=== PATIENT | male | born 1930 | race Caucasian/White ===

== ENCOUNTER 2018-11-24 15:32 | Inpatient (IN) | payer MEDICARE, BC ==
[2018-11-24] MEDS ORDERED: NS 0.9% 1000 ML** 1,000 ML IV ONE (15:43)
--- NOTE | 2018-11-24 15:47 | ED ---
GI/ HPI - HPI Summary HPI Summary: An 88 y/o male presents to [facility] with a chief complaint of diarrhea at night every 30 minutes for three days. The patient reports that all he has had is Gatorade and that a cup of tea worsened his diarrhea. He also c/o N/V, abdominal and anus pain (sore). At triage he rated his pain as a 5/10 in severity. He notes that he was at a banquet the day before these symptoms started where he ate chicken at a country club. - History of Current Complaint Chief Complaint: EDNauseaVomitDiarrh Time Seen by Provider: 11/24/18 15:42 Stated Complaint: WEAKNESS PER PT Hx Obtained From: Patient Onset/Duration: Started Days Ago, Still Present Timing: Intermittent, Lasting Minutes - 30 Severity: Moderate Current Severity: Moderate Pain Intensity: 5 - out of 10 Location of Pain: Diffuse, Anal Pain Characteristics: Other: - sore Associated Signs and Symptoms: Positive: Nausea, Vomiting, Abdominal Pain Aggravating Factor(s): Liquids Alleviating Factor(s): Nothing - Additional Pertinent History Primary Care Physician: [id number] - Allergy/Home Medications Allergies/Adverse Reactions: Allergies Allergy/AdvReac Type Severity Reaction Status Date / Time hexachlorophene Allergy Rash Verified 11/24/18 15:39 latex Allergy Rash And Verified 11/24/18 15:39 Itching pregabalin Allergy Insomnia Verified 11/24/18 15:39 Sulfa (Sulfonamide Allergy Rash And Verified 11/24/18 15:39 Antibiotics) Itching HAYFEVER Allergy SNEEZING, Uncoded 09/14/15 06:59 ITCHING Home Medications: Home Medications Aspirin EC TAB* [Ecotrin EC Low Dose 81 MG*] 81 mg PO DAILY 11/24/18 [History Confirmed 11/24/18] Cholecalciferol TAB* [Vitamin D TAB*] 400 unit PO DAILY 11/24/18 [History Confirmed 11/24/18] Famotidine TAB* [Pepcid 20 MG TAB*] 20 mg PO BEDTIME 11/24/18 [History Confirmed 11/24/18] Omeprazole 20 mg PO DAILY 11/24/18 [History Confirmed 11/24/18] PMH/Surg Hx/FS Hx/Imm Hx Endocrine/Hematology History: Reports: Hx Anemia Denies: Hx Diabetes, Hx Thyroid Disease Cardiovascular History: Denies: Hx Cardiac Arrest, Hx Congestive Heart Failure, Hx Coronary Artery Disease, Hx Deep Vein Thrombosis, Hx Hypertension, Hx Pacemaker/ICD, Hx Syncope Respiratory History: Denies: Hx Asthma, Hx Chronic Obstructive Pulmonary Disease (COPD) GI History: Reports: Hx Diverticulosis, Hx Gastroesophageal Reflux Disease, Other GI Disorders - diverticulitis Denies: Hx Ulcer History: Reports: Other Problems/Disorders - h/o prostatitis Denies: Hx Dialysis Musculoskeletal History: Reports: Hx Arthritis, Hx Back Problems, Hx Bursitis, Hx Osteoporosis, Hx Tendonitis, Other Musculoskeletal History - R 1st MP joint surgery x2, R grat toe prosthesis, L palmar fascietomy Comment Only: Hx Rheumatoid Arthritis - ARTHRITIS LOW SPINE SURGERY Sensory History: Reports: Hx Cataracts, Hx Contacts or Glasses, Hx Eye Injury - lephoritis to right eye, Hx Vision Problem - blurry, tearing to l eye, Hx Deafness - hearing aides, Hx Hearing Aid, Hx Hearing Problem Opthamlomology History: Reports: Hx Cataracts, Hx Contacts or Glasses, Hx Eye Injury - lephoritis to right eye, Hx Vision Problem - blurry, tearing to l eye Neurological History: Reports: Hx Spinal Cord Injury - L5-S1 laminectomy in 2002 , Other Neuro Impairments/Disorders - polymyaliga rheumatica Denies: Hx Dementia, Hx Seizures Psychiatric History: Denies: Hx Panic Disorder, Other Psychiatric Issues/Disorders - Surgical History Surgery Procedure, Year, and Place: 2003 [facility] RT FOOT SURGERY X2 OZ. & [id number] CATARACTS [place]. LEFT HAND 06/2014 Hx Anesthesia Reactions: No Infectious Disease History: No Infectious Disease History: Denies: Hx Clostridium Difficile, Hx Hepatitis, Hx Human Immunodeficiency Virus (HIV), Hx of Known/Suspected MRSA, Hx Shingles, Hx Tuberculosis, Hx Known/ Suspected VRE, Hx Known/Suspected VRSA, History Other Infectious Disease, Traveled Outside the [place] in Last 30 Days - Family History Known Family History: Positive: Other - cancer - Social History Alcohol Use: Rare Alcohol Amount: glass of wine with dinner Substance Use Type: Reports: None Smoking Status (MU): Never Smoked Tobacco Have You Smoked in the Last Year: No Review of Systems Positive: Fatigue. Negative: Fever Positive: Abdominal Pain, Vomiting, Diarrhea, Nausea All Other Systems Reviewed And Are Negative: Yes Physical Exam - Summary Physical Exam Summary: VITAL SIGNS: Reviewed. GENERAL: Patient is a well-developed and nourished MALE who is lying comfortable in the stretcher. Patient is not in any acute respiratory distress. HEAD AND FACE: No signs of trauma. No ecchymosis, hematomas or skull depressions. No sinus tenderness. EYES: PERRLA, EOMI x 2, No injected conjunctiva, no nystagmus. EARS: Hearing grossly intact. Ear canals and tympanic membranes are within normal limits. MOUTH: Dry oral mucosa. NECK: Supple, trachea is midline, no adenopathy, no JVD, no carotid bruit, no c- spine tenderness, neck with full ROM. CHEST: Symmetric, no tenderness at palpation LUNGS: Clear to auscultation bilaterally. No wheezing or crackles. CVS: Regular rate and rhythm, S1 and S2 present, no murmurs or gallops appreciated. ABDOMEN: Soft, non-tender. No signs of distention. No rebound no guarding, and no masses palpated. Increased bowel sounds. EXTREMITIES: FROM in all major joints, no edema, no cyanosis or clubbing. NEURO: Alert and oriented x 3. No acute neurological deficits. Speech is normal and follows commands. SKIN: Dry and warm. increased bowel sounds Triage Information Reviewed: Yes Vital Signs On Initial Exam: Initial Vitals Temp Pulse Resp BP Pulse Ox 98.8 F 88 18 129/69 96 11/24/18 15:33 11/24/18 15:33 11/24/18 15:33 11/24/18 15:33 11/24/18 15:33 Vital Signs Reviewed: Yes Diagnostics - Vital Signs Vital Signs Temp Pulse Resp BP Pulse Ox 11/24/18 15:33 98.8 F 88 18 129/69 96 - Laboratory Result Diagrams: 11/24/18 16:44 11/24/18 16:44 Lab Statement: Any lab studies that have been ordered have been reviewed, and results considered in the medical decision making process. - Radiology CXR Radiology Interpretation Completed By: Radiologist Summary of Radiographic Findings: Stigmata of obstructive lung disease. No acute pulmonary or cardiac process evident. ED physician has reviewed this imaging report. abdomen x-ray Radiology Interpretation Completed By: Radiologist Summary of Radiographic Findings: Consider colitis/gastroenteritis. ED physician has reviewed this imaging report. GIGU Course/Dx - Course Assessment/Plan: An 88 y/o male presents to [facility] with a chief complaint of diarrhea at night every 30 minutes for three days. The patient reports that all he has had is Gatorade and that a cup of tea worsened his diarrhea. He also c/o N/V, abdominal and anus pain (sore). At triage he rated his pain as a 5/10 in severity. He notes that he was at a banquet the day before these symptoms started where he ate chicken at a country club. In the ER course the patient was placed in a environmental monitoring technician, IV access was obtained and we started IV fluids. Test results shows on cc of 2.9, hemoglobin 10.6, hematocrit 32, platelets of 66. Sodium level is 1:30, carbon dioxide is 18, BUN is 35, creatinine is 1.26, glucose is 120, AST and AST is 65 and 76, CRP is 115, and lipase is less than 10. In the ED course the patient was given IV fluids. However the patient seems to be dehydrated, some renal insufficiency, the CRP is elevated. He hasnt been able to give a sample yet however I discussed the case with and Dr. Bailey from the hospitalist services who accepted the patient for admission. The patient is hemodynamically stable alert and oriented 3. - Diagnoses Provider Diagnoses: Nausea vomiting and diarrhea, Dehydration, Renal insufficiency - Physician Notifications Discussed Care Of Patient With: Iris Bailey Time Discussed With Above Provider: 18:16 Instructed by Provider To: Admit As Inpatient Discharge - Sign-Out/Discharge Documenting (check all that apply): Patient Departure - admit Patient Received Moderate/Deep Sedation with Procedure: No - Discharge Plan Condition: Fair Disposition: ADMITTED TO [facility] - Billing Disposition and Condition Condition: FAIR Disposition: Admitted to [facility] - Attestation Statements Document Initiated by Scribe: Yes Documenting Scribe: Prabhjot Taylor Provider For Whom Bertin is Documenting (Include Credential): Sang Girard MD Scribe Attestation: Prabhjot Schuler, scribed for Sang Girard MD on 11/25/18 at 0812. Scribe Documentation Reviewed: Yes Provider Attestation: The documentation as recorded by the Prabhjot marmolejo accurately reflects the service I personally performed and the decisions made by , Sagn Girard MD Status of Scribe Document: Viewed
[2018-11-24 17:08] LABS: ABS Lymphocytes 0.3 10^3/ul (1.0-4.8); ABS Monocytes 0.2 10^3/ul (0-0.8); ABS Neutrophils 2.4 10^3/ul (1.5-7.7); Hematocrit 32 % (42-52); Hemoglobin 10.6 g/dL (14.0-18.0); Lymphocyte % 9.1 %; Mean Corpuscular HGB Conc 34 g/dL (31-36); Mean Corpuscular Hemoglobin 34 pg (27-31); Mean Corpuscular Volume 101 fL (80-94); Nucleated Red Blood Cells % 0.1; Platelet Count 66 10^3/uL (150-450); Red Blood Count 3.13 10^6 /uL (4.18-5.48); Red Cell Distribution Width 19 % (10.5-15); White Blood Count 2.9 10^3/uL (3.5-10.8)
[2018-11-24 17:15] LABS: ALT 76 U/L (7-52); AST 65 U/L (13-39); Albumin 4.5 g/dL (3.2-5.2); Albumin/Globulin Ratio 1.8 (1-3); Alkaline Phosphatase 53 U/L (34-104); Anion Gap 9 mmol/L (2-11); BUN/Creatinine Ratio 27.8 (8-20); Blood Urea Nitrogen 35 mg/dL (6-24); C Reactive Protein 115.43 mg/L (<8.01); CO2 Carbon Dioxide 18 mmol/L (22-32); Calcium 9.4 mg/dL (8.6-10.3); Chloride 103 mmol/L (101-111); Creatine Kinase 108 U/L (10-223); EGFR African American 65.2 (>60); EGFR Non-African American 53.9 (>60); Globulin 2.5 g/dL (2-4); Glucose 120 mg/dL (70-100); Potassium 3.5 mmol/L (3.5-5.0); Sodium 130 mmol/L (135-145)
[2018-11-24] MEDS ORDERED: Acetaminophen TAB* 325 MG PO PRN (20:02)
[2018-11-24] MEDS ORDERED: Ondansetron INJ* 2 MG/ML VIAL IV PRN (20:02)
[2018-11-24] MEDS ORDERED: NS 0.9% 1000 ML** 1,000 ML IV SCH (20:15)
[2018-11-24] MEDS: metroNIDAZOLE IV 500 MG/100ML* 500 MG/100 ML BAG IVPB SCH (20:37)
[2018-11-24] MEDS ORDERED: Ciprofloxacin 400MG IVPREMIX(* 400 MG/200 ML BAG IVPB SCH (21:00)
--- NOTE | 2018-11-24 21:16 | HP ---
HISTORY AND PHYSICAL: DATE OF ADMISSION: 11/24/18 CHIEF COMPLAINT: Diarrhea, abdominal pain, nausea, vomiting. HISTORY OF PRESENT ILLNESS: 88-year-old male with history of hypertension, hyperlipidemia, myelodysplastic syndrome, here for further evaluation of diarrhea, nausea, and abdominal pain. The patient reports that he was in his usual state of health and went to a luncheon at the [employer] on . The patient went for an echocardiogram to evaluate his shortness of breath that has been more pronounced on Sunday and through all this, felt good. Had some calamari and red sauce for dinner on Sunday. On Sunday evening/night, the patient started developing explosive diarrhea and has been having a bowel movements every 30 minutes. Reports that there was no foul smell and the diarrhea was extremely watery. The patient called his primary care's office yesterday and she recommended waiting for another 24 hours and then going to the ER if no improvement. Currently it has been more than 48 hours of symptoms. The patient also complaining of lower abdominal discomfort that is not relieved by bowel movement. Also complaining of anal pain that is sore from having diarrhea 30 times a day. In addition, the patient also had projectile vomiting on Sunday, and has been having ongoing nausea and vomiting. The patient follows with Dr. Brewster as an outpatient and gets biweekly/weekly Aranesp shots for his MDS. The patient takes medication for high blood pressure otherwise has been fairly healthy and independent for his age. The patient lives alone and prior to this was in good health performing all his activities. PAST MEDICAL HISTORY: 1. Myelodysplastic syndrome. 2. Arthritis. 3. History of hyperlipidemia. 4. Acid reflux. 5. Hypertension for which he takes losartan at home. MEDICATION LIST: 1. Aspirin 81 mg p.o. daily. 2. Aranesp infusions. 3. Vitamin D 400 mg p.o. daily. 4. Famotidine 20 mg every day. 5. Omeprazole 20 mg daily. We will reconfirm with the patient that if he still takes his PPIs as the patient did not mention them during the interview but has found in his med list. 6. Losartan 25 mg p.o. b.i.d. SOCIAL HISTORY: The patient drinks wine socially and with meals. Denies history of smoking. No recreational drugs. 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 REVIEW OF SYSTEMS: As mentioned in the HPI. Other 14-point review of systems is noted to be negative. PHYSICAL EXAMINATION VITALS: Temperature 98.8, pulse 88, respiratory rate 18, oxygen saturation 96% , blood pressure 129/69. HEENT: NCAT. LUNGS: Clear to auscultation bilaterally. No wheezes, no rhonchi. HEART: S1, S2 present. Tachycardiac at the time of exam. ABDOMEN: Soft, minimal tenderness on palpation of the lower abdomen. Hyperactive bowel sounds. No rebound. No guarding. EXTREMITIES: Noted to have no edema. NEURO: Alert, oriented x3. DIAGNOSTIC STUDIES/LAB DATA: WBC 2.9, hemoglobin 10.6, hematocrit 32, platelets noted to be 66. Sodium 130, potassium 3.5, chloride 103, CO2 18, BUN 35, creatinine 1.26. Glucose noted to be 120. AST 65, ALT 76. CRP noted to be 115.43. Imaging: Chest x-ray: Stigmata of obstructive lung disease. No acute pulmonary or cardiac process. Abdominal x-ray: Consider colitis/gastroenteritis. ASSESSMENT AND PLAN: An 88-year-old male with a history of myelodysplastic syndrome here with symptoms of gastroenteritis/colitis. 1. Gastroenteritis/colitis. The patient has had symptoms for over 48 hours with no improvement. The patient has stayed hydrated with oral hydration through this. Viral and toxin mediated diarrhea is possible and considered. However, the patient has not improved in over 48 hours and bacterial infection would need to be considered as well. We will get stool studies on the patient including Clostridium difficile, even though the patient denies any recent antibiotic use, ova and parasites, stool culture, rota virus, vibrio ,stool wbc ,campylovbacter and check for other infectious pathology as ordered. We will hydrate the patient with normal saline. We will empirically place the patient on ciprofloxacin and Flagyl intravenously till stool studies are available and as the patient did not improve in 48 hours of conservative management, we will tailor further therapy based on stool study results. 2. Minimal elevation in creatinine secondary to dehydration. The patient's baseline appears to be 1 to 1.14. We will hydrate the patient with normal saline and we will also hold his losartan in the setting of dehydration to avoid development of acute kidney injury. 3. Hyponatremia secondary to dehydration and volume depletion. We will hydrate the patient. 4. Myelodysplastic syndrome. The patient gets weekly/biweekly Aranesp with Heme/Onc and follows with Dr. Brewster. Will need to keep Dr. Brewster updated on clinical progress. [id number]/[facility] #: [id number] MTDD
[2018-11-25] MEDS: metroNIDAZOLE IV 500 MG/100ML* 500 MG/100 ML BAG IVPB SCH (05:07)
--- NOTE | 2018-11-25 08:19 | PN ---
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 No nausea,no appetite, otherwise pleasant and well. Discussed + C Diff and rotavirus, no recent abx or sick contacts Objective Active Medications: Acetaminophen (Tylenol Tab*) 650 mg PO Q4H PRN PRN Reason: FEVER/PAIN Last Admin: 11/24/18 22:55 Dose: 650 mg Ciprofloxacin/Dextrose (Cipro 400 Mg Ivpremix(*)) 400 mg in 200 mls @ 200 mls/ hr IVPB Q12H KENDALL; Protocol Last Admin: 11/24/18 20:37 Dose: 200 mls/hr Metronidazole/Sodium Chloride (Flagyl 500 Mg Ivpb*) 500 mg in 100 mls @ 100 mls /hr IVPB Q8H KENDALL Last Admin: 11/25/18 05:07 Dose: 100 mls/hr Sodium Chloride (Ns 0.9% 1000 Ml) 1,000 mls @ 75 mls/hr IV PER RATE KENDALL Stop: 11/25/18 09:34 Last Admin: 11/24/18 22:36 Dose: 75 mls/hr Ondansetron HCl (Zofran Inj*) 4 mg IV Q4H PRN PRN Reason: NAUSEA/VOMITING Vital Signs - 8 hr 11/25/18 11/25/18 03:40 07:41 Temperature 97.5 F 98.1 F Pulse Rate 69 72 Respiratory 18 14 Rate Blood Pressure 128/53 123/57 (mmHg) O2 Sat by Pulse 96 98 Oximetry Oxygen Devices in Use Now: Nasal Cannula Appearance: Pleasant man in NAD Eyes: No Scleral Icterus, PERRLA Ears/Nose/Mouth/Throat: NL Teeth, Lips, Gums, Clear Oropharnyx Neck: NL Appearance and Movements; NL JVP Respiratory: Symmetrical Chest Expansion and Respiratory Effort, Clear to Auscultation, - - Mild atelectasisi L lung base Cardiovascular: NL Sounds; No Murmurs; No JVD, RRR Abdominal: No Hepatosplenomegaly, - - Not distended, soft, TTP in RL and LL quadrant Lymphatic: No Cervical Adenopathy Extremities: No Edema Skin: No Rash or Ulcers Neurological: Alert and Oriented x 3 Result Diagrams: 11/25/18 08:12 11/25/18 08:12 Microbiology and Other Data: Microbiology 11/24/18 21:19 Stool Gross Appearance - Final Stool C. difficile DNA Amplification - Final 027 Presumptive NEGATIVE Toxigenic C.diff POSITIVE Stool Lactoferrin - Final Stool Occult Blood (MIKE) - Final Rotavirus Antigen - Final Positive Rotavirus Assess/Plan/Problems-Billing Assessment: 88M PMH MDS following with onc, HLD, HTN, GERD who presented with acute diarrheal illness, hyponatremia and ZEKE found ot be Roatvirus and C Diff + - Patient Problems (1) Infectious diarrheal disease Current Visit: Yes Status: Acute Code(s): A09 - INFECTIOUS GASTROENTERITIS AND COLITIS, UNSPECIFIED SNOMED Code(s): 51721081 Comment: - Rotavirus and C Diff Positive - Supportive care for rotavirus, IVF hydration x 2 additional L starting 11/25 - Advance diet as tolerated (2) Clostridium difficile diarrhea Current Visit: Yes Status: Acute Code(s): A04.72 - ENTEROCOLITIS D/T CLOSTRIDIUM DIFFICILE, NOT SPCF RECUR SNOMED Code(s): 2845773465788 Comment: - D/C Cipro/Flagyl, start Oral Vancomycin 11/25 250 QID for first occurence day 07/11 on 11/25 - Morphine for pain, discussed with patient to let us know if pain worsens, r/o megacolon if so (3) ZEKE (acute kidney injury) Current Visit: Yes Status: Acute Code(s): N17.9 - ACUTE KIDNEY FAILURE, UNSPECIFIED SNOMED Code(s): 04354353 Comment: - Prerenal, recheck 11/26 - Continue IVF for now with stop amt 2 additional L (4) Hyponatremia Current Visit: Yes Status: Acute Code(s): E87.1 - HYPO-OSMOLALITY AND HYPONATREMIA SNOMED Code(s): 35745071 Comment: - C/w hypovolemia on admission (5) MDS (myelodysplastic syndrome) Current Visit: Yes Status: Acute Code(s): D46.9 - MYELODYSPLASTIC SYNDROME, UNSPECIFIED SNOMED Code(s): 769709433 Comment: - Appears at baseline pancytopenia, follows with Dr. Brewster (6) Hypertension Current Visit: Yes Status: Acute Code(s): I10 - ESSENTIAL (PRIMARY) HYPERTENSION SNOMED Code(s): 69579416 Comment: - Holding Losartan for now (7) GERD (gastroesophageal reflux disease) Current Visit: Yes Status: Acute Code(s): K21.9 - GASTRO-ESOPHAGEAL REFLUX DISEASE WITHOUT ESOPHAGITIS SNOMED Code(s): 616548222 Comment: - On famotidine, holding PPI (8) S/P knee replacement Current Visit: No Status: Acute Priority: High Onset Date: 09/16/15 Code (s): Z96.659 - PRESENCE OF UNSPECIFIED ARTIFICIAL KNEE JOINT SNOMED Code(s): 696966363 Comment: - On Remington, Tylenol, holding ibuprofen in setting of ZEKE (9) DVT prophylaxis Current Visit: Yes Status: Acute Code(s): Z29.9 - ENCOUNTER FOR PROPHYLACTIC MEASURES, UNSPECIFIED SNOMED Code(s): 834310103 Comment: - Plt 66, continue to monitor, SCD/ambuate for now (10) Full code status Current Visit: Yes Status: Acute Code(s): Z78.9 - OTHER SPECIFIED HEALTH STATUS SNOMED Code(s): 106490848 Status and Disposition: Inpatient
[2018-11-25] MEDS ORDERED: NS 0.9% 1000 ML** 2,000 ML IV ONE (08:21)
[2018-11-25 08:36] LABS: ABS Lymphocytes 0.4 10^3/ul (1.0-4.8); ABS Monocytes 0.3 10^3/ul (0-0.8); ABS Neutrophils 1.5 10^3/ul (1.5-7.7); Eosinophil % 0.1 %; Hematocrit 28 % (42-52); Hemoglobin 9.8 g/dL (14.0-18.0); Lymphocyte % 17.4 %; Mean Corpuscular HGB Conc 35 g/dL (31-36); Mean Corpuscular Hemoglobin 35 pg (27-31); Mean Corpuscular Volume 100 fL (80-94); Mean Platelet Volume 8.8 fL (7.4-10.4); Nucleated Red Blood Cells % 0.1; Platelet Count 56 10^3/uL (150-450); Red Blood Count 2.83 10^6 /uL (4.18-5.48); Red Cell Distribution Width 19 % (10.5-15); White Blood Count 2.2 10^3/uL (3.5-10.8)
[2018-11-25 08:45] LABS: Albumin 3.6 g/dL (3.2-5.2); Albumin/Globulin Ratio 1.6 (1-3); BUN/Creatinine Ratio 28.4 (8-20); Calcium 8.3 mg/dL (8.6-10.3); EGFR African American 90.3 (>60); EGFR Non-African American 74.6 (>60); Globulin 2.2 g/dL (2-4); Potassium 3.4 mmol/L (3.5-5.0); Total Bilirubin 0.4 mg/dL (0.2-1.0); Total Protein 5.8 g/dL (6.4-8.9)
[2018-11-25] MEDS: Cholecalciferol TAB* 400 UNIT PO SCH (08:58)
[2018-11-25] MEDS: Vancomycin CAP* 250 MG CAP PO SCH ×4 (08:58→20:26)
[2018-11-25] MEDS: Morphine INJ* 2 MG/ML 1 ML SYRINGE (TWO MG - NEW SYRINGE VERSION) IV PRN ×2 (13:30→20:26)
[2018-11-25] MEDS ORDERED: Calcium Carbonate CHEW TAB* 500 MG (TUMS) PO PRN (19:58)
[2018-11-25] MEDS: Gabapentin CAP(*) 300 MG PO SCH (20:25)
[2018-11-25] MEDS: Famotidine TAB* 20 MG PO SCH (20:26)
[2018-11-26 06:43] LABS: ABS Lymphocytes 0.8 10^3/ul (1.0-4.8); ABS Monocytes 0.3 10^3/ul (0-0.8); ABS Neutrophils 1.7 10^3/ul (1.5-7.7); Eosinophil % 0.2 %; Hematocrit 29 % (42-52); Hemoglobin 10.4 g/dL (14.0-18.0); Lymphocyte % 28.5 %; Mean Corpuscular HGB Conc 35 g/dL (31-36); Mean Corpuscular Hemoglobin 35 pg (27-31); Mean Corpuscular Volume 99 fL (80-94); Mean Platelet Volume 9.1 fL (7.4-10.4); Platelet Count 52 10^3/uL (150-450); Red Blood Count 2.98 10^6 /uL (4.18-5.48); Red Cell Distribution Width 19 % (10.5-15); White Blood Count 2.8 10^3/uL (3.5-10.8)
[2018-11-26 06:48] LABS: BUN/Creatinine Ratio 23.1 (8-20); Calcium 8.5 mg/dL (8.6-10.3); EGFR African American 94.9 (>60); EGFR Non-African American 78.4 (>60); Potassium 3.5 mmol/L (3.5-5.0)
--- NOTE | 2018-11-26 07:27 | PN ---
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 Vásquez [place], tolerating full liquid diet, reticent to d/c today wants to see how advancing diet goes. Objective Active Medications: Acetaminophen (Tylenol Tab*) 650 mg PO Q4H PRN PRN Reason: FEVER/PAIN Last Admin: 11/24/18 22:55 Dose: 650 mg Calcium Carbonate (Tums*) 500 mg PO Q4H PRN PRN Reason: Dyspepsia/Indigestion Last Admin: 11/25/18 20:25 Dose: 500 mg Cholecalciferol (Vitamin D Tab*) 400 unit PO DAILY [facility] Last Admin: 11/25/18 08:58 Dose: 400 unit Famotidine (Pepcid Tab*) 20 mg PO BEDTIME [facility] Last Admin: 11/25/18 20:26 Dose: 20 mg Gabapentin (Neurontin Cap(*)) 300 mg PO BEDTIME [facility] Last Admin: 11/25/18 20:25 Dose: 300 mg Morphine Sulfate (Morphine Inj (Syringe))*) 2 mg IV Q4H PRN PRN Reason: PAIN - MILD Last Admin: 11/25/18 20:26 Dose: 2 mg Ondansetron HCl (Zofran Inj*) 4 mg IV Q4H PRN PRN Reason: NAUSEA/VOMITING Last Admin: 11/25/18 09:09 Dose: 4 mg Vancomycin HCl (Vancomycin Cap*) 250 mg PO QID [facility] Stop: 12/05/18 08:59 Last Admin: 11/25/18 20:26 Dose: 250 mg Vital Signs - 8 hr 11/25/18 11/26/18 23:48 03:32 Temperature 98.2 F 98.2 F Pulse Rate 69 59 Respiratory 16 Rate Blood Pressure 120/51 (mmHg) O2 Sat by Pulse 97 97 Oximetry Oxygen Devices in Use Now: Nasal Cannula Appearance: Pleasant man in NAD Eyes: No Scleral Icterus, PERRLA Ears/Nose/Mouth/Throat: NL Teeth, Lips, Gums, Clear Oropharnyx Neck: NL Appearance and Movements; NL JVP, No Thyroid Enlargement, Masses Respiratory: Symmetrical Chest Expansion and Respiratory Effort, Clear to Auscultation Cardiovascular: NL Sounds; No Murmurs; No JVD, RRR Abdominal: NL Sounds; No Tenderness; No Distention, No Hepatosplenomegaly Lymphatic: No Cervical Adenopathy Extremities: No Edema Skin: No Rash or Ulcers Neurological: Alert and Oriented x 3 Result Diagrams: 11/26/18 06:01 11/26/18 06:01 Microbiology and Other Data: Microbiology 11/24/18 21:19 Stool Gross Appearance - Final Stool C. difficile DNA Amplification - Final 027 Presumptive NEGATIVE Toxigenic C.diff POSITIVE Stool Lactoferrin - Final Stool Occult Blood (MIKE) - Final Rotavirus Antigen - Final Positive Rotavirus Assess/Plan/Problems-Billing Assessment: 88M PMH MDS following with onc, HLD, HTN, GERD who presented with acute diarrheal illness, hyponatremia and ZEKE found ot be Roatvirus and C Diff + - Patient Problems (1) Infectious diarrheal disease Current Visit: Yes Status: Acute Code(s): A09 - INFECTIOUS GASTROENTERITIS AND COLITIS, UNSPECIFIED SNOMED Code(s): 06974049 Comment: - Rotavirus and C Diff Positive - Supportive care for rotavirus, IVF hydration d/c this AM will continue to monitor - Advance diet as tolerated (2) Clostridium difficile diarrhea Current Visit: Yes Status: Acute Code(s): A04.72 - ENTEROCOLITIS D/T CLOSTRIDIUM DIFFICILE, NOT SPCF RECUR SNOMED Code(s): 6147830752201 Comment: - D/C Cipro/Flagyl, start Oral Vancomycin 11/25 250 QID for first occurence day 07/11 on 11/25 - Morphine for pain, discussed with patient to let us know if pain worsens, r/o megacolon if so (3) ZEKE (acute kidney injury) Current Visit: Yes Status: Acute Code(s): N17.9 - ACUTE KIDNEY FAILURE, UNSPECIFIED SNOMED Code(s): 85249414 Comment: - Prerenal, improved - Continue IVF for now with stop amt 2 additional L (4) Hyponatremia Current Visit: Yes Status: Acute Code(s): E87.1 - HYPO-OSMOLALITY AND HYPONATREMIA SNOMED Code(s): 38108982 Comment: - C/w hypovolemia on admission-resolved (5) MDS (myelodysplastic syndrome) Current Visit: Yes Status: Acute Code(s): D46.9 - MYELODYSPLASTIC SYNDROME, UNSPECIFIED SNOMED Code(s): 196013155 Comment: - Appears at baseline pancytopenia, follows with Dr. Brewster (6) Hypertension Current Visit: Yes Status: Acute Code(s): I10 - ESSENTIAL (PRIMARY) HYPERTENSION SNOMED Code(s): 06991853 Comment: - Holding Losartan for now (7) GERD (gastroesophageal reflux disease) Current Visit: Yes Status: Acute Code(s): K21.9 - GASTRO-ESOPHAGEAL REFLUX DISEASE WITHOUT ESOPHAGITIS SNOMED Code(s): 413912839 Comment: - On famotidine, holding PPI (8) S/P knee replacement Current Visit: No Status: Acute Priority: High Onset Date: 09/16/15 Code (s): Z96.659 - PRESENCE OF UNSPECIFIED ARTIFICIAL KNEE JOINT SNOMED Code(s): 760366851 Comment: - On Remington, Tylenol, holding ibuprofen in setting of ZEKE (9) DVT prophylaxis Current Visit: Yes Status: Acute Code(s): Z29.9 - ENCOUNTER FOR PROPHYLACTIC MEASURES, UNSPECIFIED SNOMED Code(s): 009542577 Comment: - Plt 66, continue to monitor, SCD/ambuate for now (10) Full code status Current Visit: Yes Status: Acute Code(s): Z78.9 - OTHER SPECIFIED HEALTH STATUS SNOMED Code(s): 279868395 Status and Disposition: Inpatient
[2018-11-26] MEDS: Vancomycin CAP* 250 MG CAP PO SCH ×4 (08:18→20:56)
[2018-11-26] MEDS: Cholecalciferol TAB* 400 UNIT PO SCH (08:18)
--- NOTE | 2018-11-26 11:20 | PN ---
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 Admitted 2 days ago with severe diarrhea, found to have C.Diff and Rotavirus. Feels like he is making slow improvement. No complaints to this brief writer. Concerned about getting his injection. Medications: Acetaminophen (Tylenol Tab*) 650 mg PO Q4H PRN PRN Reason: FEVER/PAIN Last Admin: 11/24/18 22:55 Dose: 650 mg Calcium Carbonate (Tums*) 500 mg PO Q4H PRN PRN Reason: Dyspepsia/Indigestion Last Admin: 11/25/18 20:25 Dose: 500 mg Cholecalciferol (Vitamin D Tab*) 400 unit PO DAILY [facility] Last Admin: 11/26/18 08:18 Dose: 400 unit Famotidine (Pepcid Tab*) 20 mg PO BEDTIME [facility] Last Admin: 11/25/18 20:26 Dose: 20 mg Gabapentin (Neurontin Cap(*)) 300 mg PO BEDTIME [facility] Last Admin: 11/25/18 20:25 Dose: 300 mg Morphine Sulfate (Morphine Inj (Syringe))*) 2 mg IV Q4H PRN PRN Reason: PAIN - MILD Last Admin: 11/25/18 20:26 Dose: 2 mg Ondansetron HCl (Zofran Inj*) 4 mg IV Q4H PRN PRN Reason: NAUSEA/VOMITING Last Admin: 11/25/18 09:09 Dose: 4 mg Vancomycin HCl (Vancomycin Cap*) 250 mg PO QID [facility] Stop: 12/05/18 08:59 Last Admin: 11/26/18 08:18 Dose: 250 mg Objective: [] Vital Signs Temp Pulse Resp BP Pulse Ox 97.3 F 70 20 130/58 95 11/26/18 08:04 11/26/18 08:04 11/26/18 08:38 11/26/18 08:04 11/26/18 08:04 A&Ox3, EOMI, neuro grossly non-focal No acute distress Resp. even and non-labored without audible wheeze or rhonchi No palor noted Laboratory Results - last 24 hr 11/26/18 11/26/18 06:01 06:01 WBC 2.8 L RBC 2.98 L Hgb 10.4 L Hct 29 L MCV 99 H MCH 35 H MCHC 35 RDW 19 H Plt Count 52 L MPV 9.1 Neut % (Auto) 60.2 Lymph % (Auto) 28.5 Mclean % (Auto) 9.9 Eos % (Auto) 0.2 Baso % (Auto) 1.2 Absolute Neuts (auto) 1.7 Absolute Lymphs (auto) 0.8 L Absolute Monos (auto) 0.3 Absolute Eos (auto) 0.0 Absolute Basos (auto) 0.0 Absolute Nucleated RBC 0.0 Nucleated RBC % 0.0 Sodium 136 Potassium 3.5 Chloride 110 Carbon Dioxide 19 L Anion Gap 7 BUN 21 Creatinine 0.91 Est GFR ( Amer) 94.9 Est GFR (Non-Af Amer) 78.4 BUN/Creatinine Ratio 23.1 H Glucose 95 Calcium 8.5 L Assessment/Plan: []88 yo male with MDS admitted with c.diff and rotavirus, slowly improving. He has been on darbapoetin 500 mcg f4yudhe since September with stable hmg therefore with acute illness will hold injection until discharged. I have requested he call our office once he is discharged to reschedule. Further medical management per the hospitalist. EPI Brewster as scheduled 12/12
[2018-11-26] MEDS: Morphine INJ* 2 MG/ML 1 ML SYRINGE (TWO MG - NEW SYRINGE VERSION) IV PRN (20:55)
[2018-11-26] MEDS: Famotidine TAB* 20 MG PO SCH (20:57)
[2018-11-26] MEDS: Gabapentin CAP(*) 300 MG PO SCH (20:57)
[2018-11-27 07:02] LABS: BUN/Creatinine Ratio 17.5 (8-20); Calcium 8.3 mg/dL (8.6-10.3); EGFR African American 110.1 (>60); Potassium 3.1 mmol/L (3.5-5.0)
[2018-11-27 07:05] LABS: ABS Monocytes 0.2 10^3/ul (0-0.8); ABS Neutrophils 1.1 10^3/ul (1.5-7.7); Eosinophil % 0.4 %; Hematocrit 28 % (42-52); Hemoglobin 9.7 g/dL (14.0-18.0); Lymphocyte % 40.9 %; Mean Corpuscular HGB Conc 35 g/dL (31-36); Mean Corpuscular Hemoglobin 34 pg (27-31); Mean Corpuscular Volume 98 fL (80-94); Mean Platelet Volume 9.3 fL (7.4-10.4); Platelet Count 42 10^3/uL (150-450); Red Blood Count 2.84 10^6 /uL (4.18-5.48); Red Cell Distribution Width 19 % (10.5-15); White Blood Count 2.4 10^3/uL (3.5-10.8)
--- NOTE | 2018-11-27 07:07 | PN ---
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 No further pain, still diarrhea on BMs but somewhat normalizing, 3 total BM yesterday Objective Active Medications: Acetaminophen (Tylenol Tab*) 650 mg PO Q4H PRN PRN Reason: FEVER/PAIN Last Admin: 11/24/18 22:55 Dose: 650 mg Calcium Carbonate (Tums*) 500 mg PO Q4H PRN PRN Reason: Dyspepsia/Indigestion Last Admin: 11/25/18 20:25 Dose: 500 mg Cholecalciferol (Vitamin D Tab*) 400 unit PO DAILY [facility] Last Admin: 11/26/18 08:18 Dose: 400 unit Famotidine (Pepcid Tab*) 20 mg PO BEDTIME [facility] Last Admin: 11/26/18 20:57 Dose: 20 mg Gabapentin (Neurontin Cap(*)) 300 mg PO BEDTIME [facility] Last Admin: 11/26/18 20:57 Dose: 300 mg Morphine Sulfate (Morphine Inj (Syringe))*) 2 mg IV Q4H PRN PRN Reason: PAIN - MILD Last Admin: 11/26/18 20:55 Dose: 2 mg Ondansetron HCl (Zofran Inj*) 4 mg IV Q4H PRN PRN Reason: NAUSEA/VOMITING Last Admin: 11/25/18 09:09 Dose: 4 mg Potassium Chloride (Klor Con Er Tab*) 20 meq PO BID [facility] Stop: 11/28/18 09:01 Vancomycin HCl (Vancomycin Cap*) 250 mg PO QID [facility] Stop: 12/05/18 08:59 Last Admin: 11/26/18 20:56 Dose: 250 mg Vital Signs - 8 hr 11/27/18 03:11 Temperature 97.5 F Pulse Rate 63 Respiratory 16 Rate Blood Pressure 124/53 (mmHg) O2 Sat by Pulse 97 Oximetry Oxygen Devices in Use Now: None Appearance: NAD man sitting up reading book Eyes: No Scleral Icterus, PERRLA Ears/Nose/Mouth/Throat: NL Teeth, Lips, Gums, Clear Oropharnyx Neck: NL Appearance and Movements; NL JVP, Trachea Midline Respiratory: Symmetrical Chest Expansion and Respiratory Effort, Clear to Auscultation Cardiovascular: NL Sounds; No Murmurs; No JVD, RRR Abdominal: NL Sounds; No Tenderness; No Distention, No Hepatosplenomegaly Lymphatic: No Cervical Adenopathy, No Axillary Adenopathy Extremities: No Edema Skin: No Rash or Ulcers Neurological: Alert and Oriented x 3 Result Diagrams: 11/27/18 06:18 11/27/18 06:18 Microbiology and Other Data: Microbiology 11/24/18 21:19 Stool Gross Appearance - Final Stool C. difficile DNA Amplification - Final 027 Presumptive NEGATIVE Toxigenic C.diff POSITIVE Stool Lactoferrin - Final Stool Occult Blood (MIKE) - Final Rotavirus Antigen - Final Positive Rotavirus Assess/Plan/Problems-Billing Assessment: 88M PMH MDS following with onc, HLD, HTN, GERD who presented with acute diarrheal illness, hyponatremia and ZEKE found to be Roatvirus and C Diff + - Patient Problems (1) Infectious diarrheal disease Current Visit: Yes Status: Acute Code(s): A09 - INFECTIOUS GASTROENTERITIS AND COLITIS, UNSPECIFIED SNOMED Code(s): 85766810 Comment: - Rotavirus and C Diff Positive - Supportive care for rotavirus, IVF hydration d/c - Advance diet as tolerated (2) Clostridium difficile diarrhea Current Visit: Yes Status: Acute Code(s): A04.72 - ENTEROCOLITIS D/T CLOSTRIDIUM DIFFICILE, NOT SPCF RECUR SNOMED Code(s): 0615572536638 Comment: - D/C Cipro/Flagyl, start Oral Vancomycin 11/25 250 QID for first occurence day 3/10 on 11/27, d/c on 7 days (3) ZEKE (acute kidney injury) Current Visit: Yes Status: Acute Code(s): N17.9 - ACUTE KIDNEY FAILURE, UNSPECIFIED SNOMED Code(s): 91754054 Comment: - Prerenal, improved (4) Hyponatremia Current Visit: Yes Status: Acute Code(s): E87.1 - HYPO-OSMOLALITY AND HYPONATREMIA SNOMED Code(s): 91436363 Comment: - C/w hypovolemia on admission-resolved - HypoKalemia today, repleted (5) MDS (myelodysplastic syndrome) Current Visit: Yes Status: Acute Code(s): D46.9 - MYELODYSPLASTIC SYNDROME, UNSPECIFIED SNOMED Code(s): 589740971 Comment: - Appears at baseline pancytopenia, follows with Dr. Brewster (6) Hypertension Current Visit: Yes Status: Acute Code(s): I10 - ESSENTIAL (PRIMARY) HYPERTENSION SNOMED Code(s): 85617102 Comment: - Holding Losartan for now, safe to resume on d/c (7) GERD (gastroesophageal reflux disease) Current Visit: Yes Status: Acute Code(s): K21.9 - GASTRO-ESOPHAGEAL REFLUX DISEASE WITHOUT ESOPHAGITIS SNOMED Code(s): 999053033 Comment: - On famotidine, holding PPI (8) S/P knee replacement Current Visit: No Status: Acute Priority: High Onset Date: 09/16/15 Code (s): Z96.659 - PRESENCE OF UNSPECIFIED ARTIFICIAL KNEE JOINT SNOMED Code(s): 427781410 Comment: - On [place], Tylenol, resume home meds on d/c (9) DVT prophylaxis Current Visit: Yes Status: Acute Code(s): Z29.9 - ENCOUNTER FOR PROPHYLACTIC MEASURES, UNSPECIFIED SNOMED Code(s): 237865096 Comment: - Plt <50, continue to monitor, SCD/ambuate for now (10) Full code status Current Visit: Yes Status: Acute Code(s): Z78.9 - OTHER SPECIFIED HEALTH STATUS SNOMED Code(s): 009366530 Status and Disposition: Inpatient, likely d/c this evening possibly tomorrow AM
[2018-11-27] MEDS ORDERED: Potassium Chlor TAB* 20 MEQ TAB.ER PO SCH (09:00)
[2018-11-27] MEDS: Vancomycin CAP* 250 MG CAP PO SCH ×3 (09:13→16:53)
[2018-11-27] MEDS: Cholecalciferol TAB* 400 UNIT PO SCH (09:13)
[2018-11-27 13:08] LABS: Albumin 3.3 g/dL (3.2-5.2); Albumin/Globulin Ratio 1.7 (1-3); Indirect Bilirubin 0.3 mg/dL (0.3-1.0); Total Bilirubin 0.4 mg/dL (0.2-1.0); Total Protein 5.3 g/dL (6.4-8.9)
--- NOTE | 2018-11-27 14:27 | DS ---
CC: Dr. Maldonado Brewster DISCHARGE SUMMARY: DATE OF ADMISSION: 11/24/18 DATE OF DISCHARGE: 11/27/18 PRIMARY CARE PROVIDER: Dr. Voss. TREAD BOOKER: Dr. Maldonado Brewster. DISPOSITION AT THE TIME OF DISCHARGE: Stable, to home. PRIMARY DIAGNOSIS: Infectious diarrheal disease, positive Clostridium difficile colitis, first occur rence mild, rotavirus positive. SECONDARY DIAGNOSES: 1. Myelodysplastic syndrome. 2. Hyperlipidemia. 3. Hypertension. 4. Gastroesophageal reflux disease. MEDICATIONS AT THE TIME DISCHARGE: 1. Vancomycin 250 mg p.o. 4 times a day x7-1/2 days status post discharge. 2. Cholecalciferol 400 units p.o. daily. 3. Gabapentin 300 mg p.o. q.h.s. 4. Famotidine 20 mg p.o. daily. 5. Aspirin 81 mg p.o. daily. 6. B12 500 mcg p.o. q.a.m. 7. Biotin 10,000 mcg p.o. q.a.m. 8. Flex seed oil 1200 mg p.o. q.a.m. 9. Ibuprofen 200 mg p.o. q.h.s. 10. Losartan 25 mg p.o. b.i.d. 11. Multivitamin 1 cap p.o. q.a.m. 12. Omeprazole 20 mg p.o. daily. Changes to medications on this admission are addition of vancomycin 250 mg p.o. 4 times a day. HISTORY OF PRESENT ILLNESS AND HOSPITAL COURSE: An 88-year-old male with above past medical history presented to the emergency room on 11/24/18 with complaint of 2 days of diffuse diarrhea and abdomina l cramping. The patient reports he was in his usual state of health prior to admission until about 4 8 hours prior he went to [place] 2 days prior to admission and said that he felt a little bit of f, had some calamari and red sauce and following Sunday evening started having multiple episodes of d iffuse diarrhea. He was having bowel movements every 30 minutes. He said that the diarrhea was extr andrey watery. He had no vomiting. He attempted to hydrate at home for full [address] arted having lower abdominal cramping discomfort that was not relieved by bowel movement. Thus, he p resented 11/24/18 for further evaluation at the request of his children. In the emergency room, he had mild acute kidney injury with a creatinine to 1.26. CBC was notable for stable myelodysplastic syndrome, and AST and ALT were mildly elevated at 65 and 76. CRP was noted t o be 115. Abdominal x-ray showed nonspecific gas pattern concerning for colitis, gastroenteritis, no nspecific. Chest x-ray showed no acute pulmonary or cardiac process. The hospitalist team was asked to admit the patient for acute diarrheal illness, presumed infectious, as well as acute kidney injury . HOSPITAL COURSE BY PROBLEM LIST: As follows: 1. Gastroenteritis/colitis. Stool studies were sent off, the patient ultimately tested positive for C. diff. This would first occurrence, mild. Also tested positive for rotavirus. He was started on oral vancomycin on 11/25/18, tolerated medication well. By hospital day 4, he had significant impro vement of his symptoms and was tolerating diet. He slowed his bowel movements to roughly 2 to 3 per day. He was supported with IV fluids for the first 48 hours, although that was titrated off as he was able to p.o. 2. ZEKE. This is secondary to dehydration. He also had associated hyponatremia secondary to volume loss. He was volume resuscitated with total of 3 L over the first 24 hours and then kept on maintena nce fluids until the patient's p.o. intake improved significantly. 3. Myelodysplastic syndrome. The patient gets weekly/biweekly Aranesp from Heme/Onc and follows ela Brewster. Their team was made aware during this hospitalization. I have rescheduled his injection . 4. Minimally elevated LFTs. This is most likely secondary in setting of infection. We will continu e to monitor it as outpatient and they did not trend upwards during this hospitalization. 5. Hypertension. His losartan was initially held, although stable for restarting on discharge. 6. GERD. Kept him on his famotidine and PPI. 7. Arthritis. Continued on Tylenol and gabapentin. Did hold his ibuprofen until later in the hospi talization when his kidneys had recovered. DATA DURING THIS HOSPITALIZATION: Labs on day of discharge: White blood cell count 2.4, hemoglobin 9.7, hematocrit 28, platelet count 42. Sodium 136; potassium 3.1, this is repleted; chloride 108; ca rbon dioxide 22. BUN 14, creatinine 0.8. Calcium 8.3. IMAGING DONE DURING THIS HOSPITALIZATION: Includes abdominal x-ray that showed nonspecific gas patte rn concerning for gastritis, colitis, and chest x-ray showed no acute cardiopulmonary process. EKG w as done, shows sinus rhythm with no signs of acute ischemia. ITEMS TO FOLLOW UP ON STATUS POST DISCHARGE: 1. C. diff. This is first occurrence, mild. He will be treated for 10 days total with 250 mg of va ncomycin 4 times a day. This was prescribed to him and he can follow up with primary care. If he do es have recurrence of symptoms, consider extending treatment to 14 days. 2. Rotavirus. He should be past the infectious point given he is now status post 5 days of initial positive rotavirus. His family was counseled on high infectivity of rotavirus. TIME SPENT: Forty minutes was spent in the planning of this discharge with over half of that spent d irectly at the bedside with the patient providing direct patient care. On day of discharge, the juan ent is ambulating, tolerating diet and able to use bathroom himself and considered back to his baseli ne. He is advised to follow a bland diet, follow up with his regular primary care providers who he i dentifies as Dr. Brewster and Dr. Sang Voss. If there are any questions about the care of this patie nt during this hospitalization, please do not hesitate to reach out and contact us. [id number]/[facility] #: [id number]
[2018-11-27 17:34] VITALS: BP 137/66
== END 2018-11-27 17:30 | disposition home or self-care (01) | DRG 372 ==
LOC: ED 15:32 → MED 22:02
PROVIDERS: ADMIT Internal Medicine; ATTEND Internal Medicine
DX: A04.72 Enterocolitis due to Clostridium difficile, not specified as recurrent (principal); N17.9 Acute kidney failure, unspecified; E87.1 Hypo-osmolality and hyponatremia; D46.9 Myelodysplastic syndrome, unspecified; A08.0 Rotaviral enteritis; E78.5 Hyperlipidemia, unspecified; I10 Essential (primary) hypertension; K21.9 Gastro-esophageal reflux disease without esophagitis; E86.0 Dehydration; M19.90 Unspecified osteoarthritis, unspecified site; Z96.659 Presence of unspecified artificial knee joint; Z79.82 Long term (current) use of aspirin; Z79.899 Other long term (current) drug therapy
CPT/HCPCS: 36415; 71046; 74019; 80048; 80053; 80076; 82270; 82550; 83605; 83630; 83690; 83880; 85025; 85060; 86140; 87045; 87046; 87177; 87209; 87328; 87329; 87425; 87493; 87899; 93005; 99231; 99284; A9270-GY; G8978-GP-CJ; G8979-GP-CH; J0744; J2270; J2405; J3490